=== PATIENT | female | born 1990 | race Hispanic/Latino ===

== ENCOUNTER 2023-05-13 17:54 | Emergency (ER) | payer BC, OTHER ==
[~2023-05-13] VITALS: Ht 160 cm; Wt 68.0 kg
[~2023-05-13 17:54] MED LIST: PREN-154 PO
[2023-05-13 18:10] VITALS: BP 128/84; PULSE 88; RESP 18
[2023-05-13 19:45] LABS: BASOPHILS # (AUTO) 0.03 K/uL (0.00-0.20); BASOPHILS % (AUTO) 0.5 % (0.0-5.0); EOSINOPHILS # (AUTO) 0.04 K/uL (0.00-0.70); EOSINOPHILS % (AUTO) 0.7 % (0.0-8.0); HEMATOCRIT 36.3 % (36-48); IMMATURE GRANULOCYTE ABSOLUTE 0.03 K/uL (0-1); LYMPHOCYTES # (AUTO) 1.7 K/uL (1.0-4.8); LYMPHOCYTES % (AUTO) 28.1 % (21.0-51.0); MEAN CORPUSCULAR HEMOGLOBIN 28.4 pg (27.0-33.0); MEAN CORPUSCULAR HGB CONC 32.8 g/dL (32.0-36.0); MEAN CORPUSCULAR VOLUME 86.6 fL (79-99); MONOCYTES # (AUTO) 0.6 K/uL (0.1-1.0); MONOCYTES % (AUTO) 9.3 % (3.0-13.0); NEUTROPHILS # (AUTO) 3.6 K/uL (1.8-7.7); NEUTROPHILS % (AUTO) 60.9 % (40.0-77.0); PLATELET COUNT (AUTO) 268 K/uL (130-400); RED BLOOD CELL COUNT(AUTO) 4.19 MIL/uL (4.00-5.50); RED CELL DISTRIBUTION WIDTH 12.9 % (11.0-15.5); WHITE BLOOD COUNT (AUTO) 5.9 K/uL (4.8-10.8)
== END 2023-05-13 22:45 | disposition home or self-care (01) ==
LOC: EDH 17:54
DX: N93.9 Abnormal uterine and vaginal bleeding, unspecified (principal); Z88.1 Allergy status to other antibiotic agents; Z88.5 Allergy status to narcotic agent; Z90.49 Acquired absence of other specified parts of digestive tract
CPT/HCPCS: 36415; 76830; 84703; 85025; 86850; 86900; 86901

== ENCOUNTER 2024-07-25 17:51 | Emergency (ER) | payer BC ==
[~2024-07-25] VITALS: Ht 157.5 cm; Wt 68.0 kg
[2024-07-25 18:00] VITALS: BP 125/74; PULSE 91; RESP 20; TEMP 98.2; O2SAT 100
[2024-07-25] MEDS ORDERED: KETO10TA2 PO (18:05)
[2024-07-25] MEDS ORDERED: LEVO-70 PO (18:05)
[2024-07-25] MEDS: ketOROlac 30MG VIAL (30MG/ML) IM ONE (18:07)
--- NOTE | 2024-07-25 18:07 | ERN ---
General Chief Complaint: Allergies Stated Complaint: SINUS INFECTION Time Seen by MD: 17:52 Time Seen by Midlevel: 17:52 Source: patient History of Present Illness Initial Comments Patient is a 33-year-old female with a past medical history of sinusitis presenting to the emergency department with a frontal headache. Patient reports having an extensive history of sinusitis requiring a balloon sinuplasty. Her symptoms started two weeks ago. She was seen by her primary care doctor last week who started her on amoxicillin and was given a steroid injection with temporary relief. However, she states her symptoms have significantly worsened. She denies any fevers but does report purulent discharge from her nose. Allergies: Coded Allergies: azithromycin (Unverified Allergy, Unknown, HIVES, 12/19/18) codeine (Unverified Allergy, Unknown, DIFFICULTY BREATHING, 12/19/18) Home Meds Reported Medications Vits #93/Iron Fum/FA ( Formula Tablet) 1 Each Tablet, 1 EACH PO DAILY, TAB 12/19/18 Past Medical History Past Medical History: No Pertinent History Past Surgical History: None Family History Family History: Negative Social History Social History: Negative, Lives with family ROS Dictation CONSTITUTIONAL: Negative except for HPI HEAD/FACE: Negative except for HPI EENT: Negative except for HPI RESPIRATORY: Negative except for HPI GASTROINTESTINAL/ABDOMINAL: Negative except for HPI GENITOURINARY: Negative except for HPI MUSCULOSKELETAL: Negative except for HPI INTEGUMENTARY: Negative except for HPI NEUROLOGICAL/PSYCH: Negative except for HPI HEMATOLOGIC/LYMPHATIC: Negative except for HPI All Systems Negative, Except as noted above. 13 point review of systems assessed and all negative except for above. Physical Exam Physical Exam Dictation Vital Signs reviewed General Appearance: Alert, oriented x 3, no acute distress, well developed, nourished. Head and Face: Bilateral maxillary sinus tenderness Eyes: PERRL, pink conjunctivas, eyelid no trauma, anterior chamber with arcus se nilis. Ears: Pinnas intact and no signs of trauma or erythema ear canals clear and no discharge TM no erythema Nose: No discharge, no bleeding. Oropharynx: Mouth normal, tongue pink, pharynx clear,no erythema, tonsils no exudates, no abscesses noted, mucous membrane moist Neck: Supple, non-tender, no thyromegaly, no masses, no JVD, no bruits Breast:Deferred Chest:No tenderness, no crepitus, no paradoxical movement, no retractions Lungs:Clear, well-ventilated, symmetric, no rales, no wheezing, no rhonchi, no stridor, good breath sounds bilaterally Heart: Regular rate, regular rhythm, no murmur, no gallops Vascular: no peripheral edema, Abdomen: Soft, positive bowel sounds, nondistended, no guarding, nontender, no rebound, no masses no hepatomegaly, no splenomegaly, no Low's sign, no hernias. Rectal: Deferred Genital: Deferred Neurological: Normal speech, motor function intact, sensory function intact Musculoskeletal: Neck nontender, full range of motion, back nontender, full range of motion, Extremities: nontender, full range of motion Skin: Color pink, dry, no turgor, no rash, no lacerations, no abrasions, no contusions. Lymphatic: Deferred MDM MDM: Patient is a 33-year-old female with a past medical history of sinusitis presenting to the emergency department with a frontal headache. Patient reports having an extensive history of sinusitis requiring a balloon sinuplasty. Her symptoms started two weeks ago. She was seen by her primary care doctor last week who started her on amoxicillin and was given a steroid injection with temporary relief. However, she states her symptoms have significantly worsened. She denies any fevers but does report purulent discharge from her nose. On physical examination patient has bilateral maxillary sinus tenderness. There was no purulent discharge noted. She is afebrile and nontoxic appearing. Patient has been taking amoxicillin for the last couple of days with no improvement. Patient was advised to stop the amoxicillin and start a r espiratory fluoroquinolone. She was also advised to follow up with your primary care doctor for possible referral to ENT. Patient agrees with this plan and all questions have been answered. Patient was given dexamethasone and Toradol in the emergency department. She specifically denies being and states she was on control. Differential diagnosis: Sinusitis, upper respiratory infection, viral syndrome There are no social concerns with this patient. Prescription drug management Prescriptions will include: Levofloxacin Medical management and examination interpretation discussions were had by me with other qualified healthcare professionals as indicated for the patient's care. ED Course Orders Procedure Category Date Status Time Ketorolac PHA 07/25/24 In Process Tromethamine 30mg/Ml 18:00 Dexamethasone 4mg/Ml PHA 07/25/24 In Process 1ml Vial (Dexametha 18:00 Vital Signs Date Time Temp Pulse Resp B/P (MAP) Pulse Ox O2 Delivery O2 Flow Rate FiO2 07/25/24 17:51 98.2 96 20 143/108 99 0 DX & DISP Disposition: Discharge Departure Impression: Primary Impression: Sinusitis Condition: Stable Scripts Levofloxacin (Levofloxacin) 500 Mg Tablet 1 TAB PO DAILY for 10 Days, #10 TAB 0 Refills Prov: ARVIND DEY 07/25/24 Ketorolac Tromethamine (Ketorolac Tromethamine) 10 Mg Tablet 10 MG PO BID for 5 Days, #10 TAB Prov: ARVIND DEY 07/25/24 Additional Instructions: Your physical examination is consistent with sinusitis. You were given an injection of Toradol and dexamethasone in the emergency department. Given that you were on amoxicillin with no relief. Please stop the amoxicillin and start the new medication I am going to prescribe called levofloxacin. Follow up with your primary care doctor for possible referral to ENT. If you develop any worsening symptoms please report to the ER for further evaluation. Referrals: BENNY JENKINS (PCP) Time of Disposition: 18:04 I have reviewed the case, and I agree with, Diagnosis and Plan I performed the substantive portion of the visit. I have reviewed and personally made and approve the management plan that is documented in the note by myself or the NADINE. I acknowledge for responsibility for the patient's management plan. ARVIND DEY Jul 25, 2024 18:07
[2024-07-25] MEDS: dexaMETHasone SOD PHOSPHATE 4 MG/ML 1ML VIAL IV ONE (18:08)
== END 2024-07-25 18:38 | disposition home or self-care (01) ==
LOC: EDH 17:51
DX: J32.9 Chronic sinusitis, unspecified (principal); Z88.1 Allergy status to other antibiotic agents; Z88.5 Allergy status to narcotic agent
CPT/HCPCS: 99284; 96374; 96372; J1100; J1885

== ENCOUNTER 2025-01-20 19:10 | Emergency (ER) | payer BC ==
[~2025-01-20] VITALS: Ht 160 cm; Wt 65.8 kg
[~2025-01-20 19:10] MED LIST changes: +KETO10TA2 PO; +LEVO-70 PO
--- NOTE | 2025-01-20 19:14 | NUR ---
COVID, FLU AND STREP SWABS COLLECTED AND SENT
[2025-01-20 19:38] LABS: RAPID GROUP A STREP negative (NEGATIVE)
[2025-01-20 19:39] LABS: SARS-CoV-2, RNA, NAAT NEGATIVE SARS CoV-2 (NEGATIVE)
[2025-01-20] MEDS: 0.9%NACL 1000ML 1,000 ML IV STA (20:01)
[2025-01-20] MEDS: BENZONATATE 100 MG CAPSULE PO STA (20:02)
[2025-01-20] MEDS: Solu-medROL 125MG VIAL IVP STA (20:02)
[2025-01-20] MEDS: ketOROlac 15MG/ML VIAL (15MG/ML) IV STA (20:02)
[2025-01-20 20:09] LABS: BASOPHILS # (AUTO) 0.02 K/uL (0.00-0.20); BASOPHILS % (AUTO) 0.3 % (0.0-5.0); EOSINOPHILS # (AUTO) 0.03 K/uL (0.00-0.70); EOSINOPHILS % (AUTO) 0.4 % (0.0-8.0); HEMATOCRIT 41.1 % (36-48); IMMATURE GRANULOCYTE ABSOLUTE 0.02 K/uL (0-1); LYMPHOCYTES # (AUTO) 1.3 K/uL (1.0-4.8); LYMPHOCYTES % (AUTO) 17.3 % (21.0-51.0); MEAN CORPUSCULAR HEMOGLOBIN 29.1 pg (27.0-33.0); MEAN CORPUSCULAR HGB CONC 33.3 g/dL (32.0-36.0); MEAN CORPUSCULAR VOLUME 87.3 fL (79-99); MONOCYTES # (AUTO) 0.6 K/uL (0.1-1.0); MONOCYTES % (AUTO) 8.2 % (3.0-13.0); NEUTROPHILS # (AUTO) 5.3 K/uL (1.8-7.7); NEUTROPHILS % (AUTO) 73.5 % (40.0-77.0); PLATELET COUNT (AUTO) 253 K/uL (130-400); RED BLOOD CELL COUNT(AUTO) 4.71 MIL/uL (4.00-5.50); RED CELL DISTRIBUTION WIDTH 13.2 % (11.0-15.5); WHITE BLOOD COUNT (AUTO) 7.2 K/uL (4.8-10.8)
--- NOTE | 2025-01-20 20:14 | HMCIMG ---
Exam Type: CHEST 1VW Clinical Information: COUGH Comparison: None Findings: The lungs are clear of infiltrates. The heart is normal in size. The bony and soft tissue structures of the chest are unremarkable. Impression: Clear lungs.
[2025-01-20 20:17] VITALS: PULSE 120; RESP 20
[2025-01-20] MEDS: IpraTROPium/alBUTERol SULFATE 3 ML SOLUTION IH STA (20:17)
[2025-01-20 20:22] LABS: CREATININE 0.9 mg/dL (0.5-1.0)
[2025-01-20 20:38] LABS: INFLUENZA TYPE A NEGATIVE FOR TYPE A (NEG)
[2025-01-20 20:39] LABS: INFLUENZA TYPE B NEGATIVE FOR TYPE B (NEG)
[2025-01-20] MEDS ORDERED: ONDA-243 PO (21:31)
--- NOTE | 2025-01-20 21:32 | ERN ---
ED Note History of Present Illness Stated Complaint: HEADACHE, FEVERS, BODYACHES Chief Complaint: Flu Symptoms Time Seen by MD: 19:15 Time Seen by Midlevel: 19:20 Dictation: 34-YEAR-OLD FEMALE WITH NO MEDICAL HISTORY COMING IN WITH COMPLAINTS OF FLU-LIKE SYMPTOMS ONSET WEDNESDAY. PATIENT STATES HER SON WAS DIAGNOSED WITH A AMMONIA TWO WEEKS AGO. PATIENT STATES SHE WAS SEEN BY HER PCP ON WEDNESDAY WAS GIVEN IN ROCEPHIN IM, A STEROID, AND WAS PLACED ON LEVOFLOXACIN IN AND AN INHALER. PATIENT STATES TODAY SHE STILL CONTINUES WITH THROAT PAIN AND FEELS WEAK. NO MENINGEAL SIGNS. Allergies: Coded Allergies: azithromycin (Unverified Allergy, Unknown, HIVES, 12/19/18) codeine (Unverified Allergy, Unknown, DIFFICULTY BREATHING, 12/19/18) Home Meds Active Scripts Levofloxacin (Levofloxacin) 500 Mg Tablet, 1 TAB PO DAILY for 10 Days, #10 TAB 0 Refills Prov:ARVIND DEY 07/25/24 Ketorolac Tromethamine (Ketorolac Tromethamine) 10 Mg Tablet, 10 MG PO BID for 5 Days, #10 TAB Prov:ARVIND DEY 07/25/24 Reported Medications Vits #93/Iron Fum/FA ( Formula Tablet) 1 Each Tablet, 1 EACH PO DAILY, TAB 12/19/18 Past Medical History Past Medical History: No Pertinent History Surgical History: None Family History: Negative Social History: Negative, Lives with family LMP: Jan 09, 2025 Review of System Dictation CONSTITUTIONAL: POSITIVE FOR FEVER CHILLS AND GENERALIZED BODY ACHES AND PAINS EYES: NEGATIVE FOR INJURY, PAIN,REDNESS, AND DISCHARGE ENT: NEGATIVE FOR INJURY,PAIN OR SWELLING CARDIOVASCULAR: NEGATIVE FOR CHEST PAIN, PALPITATIONS, AND EDEMA RESPIRATORY: NEGATIVE FOR SHORTNESS OF BREATH, COUGH, AND WHEEZING, ABDOMEN/GI: NEGATIVE FOR ABDOMINAL PAIN, NAUSEA, VOMITING, DIARRHEA, AND CONSTIPATION BACK: NEGATIVE FOR INJURY AND PAIN : NEGATIVE FOR INJURY, BLEEDING AND DISCHARGE MS/EXTREMITY: NEGATIVE FOR INJURY AND DEFORMITY SKIN: NEGATIVE FOR RASH, AND DISCOLORATION NEURO: NEGATIVE FOR HEADACHE, WEAKNESS, NUMBNESS, TINGLING, AND SEIZURE PSYCH: NEGATIVE FOR SUICIDE IDEATION, HOMICIDAL IDEATION, AND HALLUCINATIONS Review of Systems: was completed Initial Vital Sign VS Vital Signs Date Time Temp Pulse Resp B/P (MAP) Pulse Ox O2 Delivery O2 Flow Rate FiO2 5/10/25 19:11 100.6 127 20 156/97 98 Room Air Physical Exam Dictation GENERAL: AWAKE, ALERT, NAD HEAD/FACE: NORMOCEPHALIC, ATRAUMATIC EYES: PERRL, EOMI, VISION AT BASELINE ENT: ORAL CAVITY CLEAR, TMS CLEAR, MILD ERYTHEMA NOTED TO THE PHARYNX, NO SWELLING, NO EXUDATE, NO EFFACEMENT NECK: TRACHEA MIDLINE, SUPPLE, NO NUCHAL RIGIDITY CARDIOVASCULAR: RRR, NORMAL S1/S2, NO MRGS, NO JVD RESPIRATORY: CTAB, NO RESPIRATORY DISTRESS, NO RALES OR WHEEZES ABDOMEN: SOFT, NON-TENDER, NON-DISTENDED, NORMAL BOWEL SOUNDS, NO GUARDING OR REBOUND. SKIN: WARM, DRY, NORMAL TURGOR, NO RASH MS/EXTREMITY: PULSES EQUAL, NO CYANOSIS, NEUROVASCULAR INTACT, FROM NEURO: COAX4, GCS 15, STRENGTH 5/5, CN 2-12 INTACT, NORMAL CEREBELLAR EXAM, NORMAL GAIT, PSYCH: NORMAL BEHAVIOR, MOOD, AND AFFECT NORMAL Results (Laboratory/Radiology) Laboratory/Radiology Laboratory Tests Test 01/20/25 19:17 01/20/25 19:54 Influenza Type A Antigen NEGATIVE FOR TYPE A (NEG) Influenza Type B Antigen NEGATIVE FOR TYPE B (NEG) SARS-CoV-2, RNA, NAAT NEGATIVE SARS CoV-2 Group A Streptococcus Rapid negative (NEGATIVE) White Blood Count 7.2 K/uL (4.8-10.8) Red Blood Count 4.71 MIL/uL (4.00-5.50) Hemoglobin 13.7 g/dL (12.0-16.0) Hematocrit 41.1 % (36-48) Mean Corpuscular Volume 87.3 fL (79-99) Mean Corpuscular Hemoglobin 29.1 pg (27.0-33.0) Mean Corpuscular Hemoglobin Concent 33.3 g/dL (32.0-36.0) Red Cell Distribution Width 13.2 % (11.0-15.5) Platelet Count 253 K/uL (130-400) Mean Platelet Volume 9.3 fL (7.5-10.5) Immature Granulocyte % (Auto) 0.3 % (0-1) Neutrophils (%) (Auto) 73.5 % (40.0-77.0) Lymphocytes (%) (Auto) 17.3 % (21.0-51.0) L Monocytes (%) (Auto) 8.2 % (3.0-13.0) Eosinophils (%) (Auto) 0.4 % (0.0-8.0) Basophils (%) (Auto) 0.3 % (0.0-5.0) Neutrophils # (Auto) 5.3 K/uL (1.8-7.7) Lymphocytes # (Auto) 1.3 K/uL (1.0-4.8) Monocytes # (Auto) 0.6 K/uL (0.1-1.0) Eosinophils # (Auto) 0.03 K/uL (0.00-0.70) Basophils # (Auto) 0.02 K/uL (0.00-0.20) Absolute Immature Granulocyte (auto 0.02 K/uL (0-1) Nucleated Red Blood Cells 0.0 % (0.0-0.19) Sodium Level 140 mmol/L (136-145) Potassium Level 4.0 mmol/L (3.5-5.1) Chloride Level 103 mmol/L (101-111) Carbon Dioxide Level 32 mmol/L (21-32) Blood Urea Nitrogen 6 mg/dL (7-18) L Creatinine 0.9 mg/dL (0.5-1.0) Glomerular Filtration Rate Calc 85 mL/min (>90) Random Glucose 127 mg/dL (70-105) H Total Calcium 9.0 mg/dL (8.5-10.1) Human Chorionic Gonadotropin, Quant 0 mIU/mL (0-5) Labs Reviewed?: Yes X-RAY Comment: [place] [address] IMAGING REPORT Signed PATIENT: JOSE L QUINN MR#: [id number] : 1990 SEX: F AGE: 34 LOCATION: [facility] ORDER 22 STATUS: REG ER REPORT#: [id number] SERVICE 20 REASON: COUGH ORDERING PHYSICIAN: TARA MEEHAN NP PROCEDURE: CXR1VW - CHEST 1VW Exam Type: CHEST 1VW Clinical Information: COUGH Comparison: None Findings: The lungs are clear of infiltrates. The heart is normal in size. The bony and soft tissue structures of the chest are unremarkable. Impression: Clear lungs. DICTATED BY: DELMER GOMEZ MD DATE: 01/20/252010 ELECTRONICALLY SIGNED BY: DELMER GOMEZ MD DATE: 01/20/252013 ED Course ED Course Orders Procedure Category Date Status Time Covid Rna Naat LAB 01/20/25 Complete 19:14 Rapid (Group A Strep) LAB 01/20/25 Complete 19:14 Cbc With Differential LAB 01/20/25 Complete 19:21 Basic Metabolic Panel LAB 01/20/25 Complete 19:21 Hcg,Quantitative LAB 01/20/25 Complete 19:21 Chest 1vw RAD 01/20/25 Resulted 19:21 0.9%Nacl 1000ml (Ns PHA 01/20/25 In Process 1000ml) 19:21 Methylprednisolone PHA 01/20/25 Complete Succ 125mg (Solu-Medr 19:21 Ketorolac PHA 01/20/25 Complete Tromethamine 15mg/Ml 19:21 Benzonatate 100 Mg PHA 01/20/25 Complete Capsule (Tessalon 100 19:21 Ipratropium/Albuterol PHA 01/20/25 Complete Neb (Duoneb) 19:21 Current Medications Medications (Trade) Dose Ordered Sig/Beroniac Route PRN Reason Start Time Stop Time Status Last Admin Dose Admin Albuterol (DUOneb) 1 UDVIAL ONCE STAT IH 01/20/25 19:21 01/20/25 19:25 DC 01/20/25 20:17 Benzonatate (Tessalon 100mg Caps) 200 mg ONCE STAT PO 01/20/25 19:21 01/20/25 19:25 DC 01/20/25 20:02 Ketorolac Tromethamine (toRADol) 15 mg ONCE STAT IV 01/20/25 19:21 01/20/25 19:25 DC 01/20/25 20:02 Methylprednisolone Sodium Succinate (Solu-medROL 125MG) 125 mg ONCE STAT IVP 01/20/25 19:21 01/20/25 19:25 DC 01/20/25 20:02 Sodium Chloride 1,000 ml @ 100 mls/hr Q10H STAT IV 01/20/25 19:21 01/21/25 05:20 5/10/25 20:01 Vital Signs Date Time Temp Pulse Resp B/P (MAP) Pulse Ox O2 Delivery O2 Flow Rate FiO2 01/20/25 20:17 120 20 01/20/25 19:11 100.6 127 20 156/97 98 Room Air Medical Decision Making MDM MDM: 34-YEAR-OLD FEMALE WITH NO MEDICAL HISTORY COMING IN WITH COMPLAINTS OF FLU-LIKE SYMPTOMS ONSET WEDNESDAY. PATIENT STATES HER SON WAS DIAGNOSED WITH A AMM ONIA TWO WEEKS AGO. PATIENT STATES SHE WAS SEEN BY HER PCP ON WEDNESDAY WAS GIVEN IN ROCEPHIN IM, A STEROID, AND WAS PLACED ON LEVOFLOXACIN IN AND AN INHALER. PATIENT STATES TODAY SHE STILL CONTINUES WITH THROAT PAIN AND FEELS WEAK. NO MENINGEAL SIGNS. REASSESSMENT AFTER FLUIDS PATIENT STATES SHE FEELS BETTER. BLOOD WORK UNREMARKABLE. CHEST X-RAY IS CLEAR. SWABS ARE NEGATIVE FOR COVID, FLU OR STREP. DISCUSSED WITH THE PATIENT SHE WAS THE CORRECT TREATMENT AND NEEDS TO GIVE IT TIME FOR THE ANTIBIOTICS TAKE EFFECT. EDUCATED TO FOLLOW UP WITH HER PCP IF IN COUPLE OF DAYS AFTER TAKING ANTIBIOTIC SHE DOES NOT FEEL ANY BETTER. DISCUSSED IF SHE HAS A ANY SICK WORSENING SYMPTOMS TO RETURN BACK TO THE EMERGENCY ROOM. PATIENT VERBALIZED UNDERSTANDING, ANSWERED ALL QUESTIONS. DIFFERENTIAL DIAGNOSIS: URI, INFLUENZA, COVID, VIRAL SYNDROME RATIONALE: TESTS CONSIDERED AND ORDERED SECONDARY TO SHARED DECISION MAKING INCLUDE: PREVIOUS OUTSIDE RECORDS REVIEWED: OLD ER VISITS. RISK OF COMPLICATION AND/OR MORBIDITY OR MORTALITY OF PATIENT MANAGEMENT: NONE MEDICATIONS-PER MEDICATION RECONCILIATION NEED FOR HOSPITALIZATION: PATIENT DOES NOT MEET CRITERIA FOR HOSPITALIZATION. NEED FOR EMERGENCY MAJOR/MINOR SURGERY: NO THERE ARE NO SOCIAL CONCERNS WITH THIS PATIENT. PRESCRIPTION DRUG MANAGEMENT PRESCRIPTIONS WILL INCLUDE SYMPTOMATIC CARE PATIENT'S PRIOR EXTERNAL MEDICAL RECORDS FROM OTHER ER VISITS WERE REVIEWED BY ME INDICATED. PRIOR TESTING AND RESULTS FROM PREVIOUS VISITS WERE REVIEWED. PRIOR TESTS WERE TAKEN INTO ACCOUNT WITH MEDICAL DECISION MAKING AND RESOURCE UTILIZATION, INDEPENDENT HISTORIAN/HISTORIANS WERE USED TO OBTAIN COMPLETE MEDICAL HISTORY. I INDEPENDENTLY INTERPRETED THE TEST THAT WERE PERFORMED, RESULTS WERE REVIEWED BY ME AND CONSIDERED FINDINGS ON RADIOLOGY IF ORDERED. MEDICAL MANAGEMENT AND EXAMINATION INTERPRETATION DISCUSSIONS WERE HAD BY ME WITH OTHER QUALIFIED HEALTHCARE PROFESSIONALS INDICATED FOR THE PATIENT'S CARE. DX & DISP Disposition: Discharge Departure Impression: Primary Impression: URI (upper respiratory infection) Condition: Stable Scripts Ondansetron (Ondansetron Odt) 4 Mg Tab.rapdis 4 MG PO Q6HPRN PRN for nausea for 3 Days, #12 TAB 0 Refills Prov: TARA MEEHAN NP 01/20/25 Additional Instructions: CONTINUE TAKING THE ANTIBIOTIC THAT YOU WERE PRESCRIBED ALONG WITH THE OTHER MEDICATIONS. FOLLOW UP WITH YOUR PRIMARY DOCTOR IN 1-2 DAYS, RETURN TO THE HOSPITAL IF YOU HAVE ANY WORSENING SYMPTOMS. STAY HYDRATED Referrals: BENNY JENKINS (PCP) Time of Disposition: 21:31 I have reviewed the case, and I agree with, Diagnosis and Plan TARA MEEHAN NP January 20, 2025 21:32
[2025-01-20 22:55] VITALS: BP 115/63; PULSE 84; RESP 16; TEMP 98.3; O2SAT 100
== END 2025-01-20 22:57 | disposition home or self-care (01) ==
LOC: EDH 19:10
DX: J06.9 Acute upper respiratory infection, unspecified (principal); R10.2 Pelvic and perineal pain; Z20.822 Contact with and (suspected) exposure to COVID-19; Z79.899 Other long term (current) drug therapy; Z88.1 Allergy status to other antibiotic agents; Z88.5 Allergy status to narcotic agent
CPT/HCPCS: 99284; 96374; 71045; 87635; 96375; 80048; 84702; 85025; 87880; 87804 ×2; 36415; 94640; J1885; J2919; J7030

== ENCOUNTER 2025-04-08 21:02 | Emergency (ER) | payer BC ==
[~2025-04-08] VITALS: Ht 160 cm; Wt 59.0 kg
[~2025-04-08 21:02] MED LIST changes: +ONDA-243 PO
--- NOTE | 2025-04-08 21:05 | NUR ---
FLU, COVID AND STREP SWABS COLLECTED ANND SENT FOR ANY FUTURE ORDERS
[2025-04-08 21:24] LABS: RAPID GROUP A STREP negative (NEGATIVE)
--- NOTE | 2025-04-08 21:42 | ERN ---
General Chief Complaint: Flu Symptoms Stated Complaint: FEVER, SORE THROAT, BODYACHES. SINUS PRESSURE Time Seen by MD: 21:05 Source: patient History of Present Illness Initial Comments Patient has a healthy 34-year-old female who for the last 2-3 days has had sore throat body aches sinus pressure and low-grade temperatures. She feels there is purulent drainage in the back of her throat and she has a productive cough. She has a history of sinus infections from a deviated septum and she feels like she has similar symptoms now. She comes in because her primary care physician has switched health care plans. She notes that there are people with coughing and sniffling in her family. Allergies: Coded Allergies: azithromycin (Unverified Allergy, Unknown, HIVES, 12/19/18) codeine (Unverified Allergy, Unknown, DIFFICULTY BREATHING, 12/19/18) Home Meds Active Scripts Ondansetron (Ondansetron Odt) 4 Mg Tab.rapdis, 4 MG PO Q6HPRN PRN for nausea for 3 Days, #12 TAB 0 Refills Prov:TARA MEEHAN PATIENT SERVICE SPECIALIST 01/20/25 Levofloxacin (Levofloxacin) 500 Mg Tablet, 1 TAB PO DAILY for 10 Days, #10 TAB 0 Refills Prov:ARVIND DEY PA 07/25/24 Ketorolac Tromethamine (Ketorolac Tromethamine) 10 Mg Tablet, 10 MG PO BID for 5 Days, #10 TAB Prov:ARVIND DEY PA 07/25/24 Reported Medications Vits #93/Iron Fum/FA ( Formula Tablet) 1 Each Tablet, 1 EACH PO DAILY, TAB 12/19/18 Past Medical History Past Medical History: No Pertinent History Past Surgical History: Other Surgical History Other: NASAL-deviated septum Family History Family History: Negative Social History Social History: Negative, Lives with family Female( History) LMP: Apr 02, 2025 Constitutional: (+) fever EENTM: (-) eye pain, (-) blurred vision, (-) tearing, (-) double vision, (-) ear pain, (-) ear discharge, (-) nose pain, (-) nose congestion, (-) throat pain, (-) Throat swelling, (-) mouth pain, (-) tooth pain, (-) mouth swelling, (-) other documentation Respiratory: (+) cough, (+) wheezing Cardiovascular: (+) dyspnea on exertion Gastrointestinal/Abdominal: (-) nausea, (-) vomiting, (-) diarrhea, (-) abdominal pain, (-) abdominal distention, (-) constipation, (-) rectal bleeding, (-) dark stool/melena, (-) other documentation Genitourinary: (-) vaginal discharge, (-) vaginal bleeding, (-) dysuria, (-) frequency, (-) hematuria, (-) pain, (-) other documentation Musculoskeletal: (-) Neck pain, (-) back pain, (-) Flank Pain, (-) joint pain, (-) joint swelling, (-) muscle pain, (-) muscle stiffness, (-) gout, (-) other documentation Skin: (-) laceration, (-) contusion, (-) abrasion, (-) abscess, (-) rash, (-) change in color, (-) change in hair, (-) change in nails, (-) diaphoresis, (-) dryness, (-) other documentation Physical Exam General Appearance: (+) mild distress Orientation: (+) alert, (+) oriented x 3 Head/Face Trauma: No Eye: bilateral eye normal inspection, bilateral eye PERRL, bilateral eye EOMI Ear, Nose, Throat: (+) hearing grossly normal, (+) normal ENT inspection, (+) moist mucous membraine, (+) normal pharynx Ear, Nose, Throat Comment I could not see any sinus drainage or erythema in the back of her throat. Neck: (-) normal inspection, (-) supple, (-) full range of motion, (-) no JVD, (-) non-tender, (-) no bruit, (-) tender, (-) limited range of motion, (-) tender lateral, (-) tender midline, (-) thyromegaly, (-) lymphadenopathy, (-) masses, (-) carotid bruit, (-) other documentaion Respiratory: (+) chest non-tender, (+) lungs clear, (+) well ventilated Heart: (+) regular, (+) no gallop Gastrointestinal: (+) soft, (+) non-tender, (+) bowel sound present Results Laboratory and Microbiology Lab and Micro Result Laboratory Tests Test 04/08/25 21:07 04/08/25 21:50 04/08/25 21:55 Influenza Type A Antigen Positive For Type A Influenza Type B Antigen Positive For Type B SARS-CoV-2 Antigen (Rapid) POSITIVE FOR SARS AG Group A Streptococcus Rapid negative (NEGATIVE) Urine Color LIGHT-YELLOW (YELLOW) Urine Appearance CLEAR (CLEAR) Urine pH 6.5 (5.0-8.0) Urine Specific [place] 1.021 (1.001-1.031) Urine Protein NEGATIVE mg/dL (NEGATIVE) Urine Glucose (UA) NEGATIVE mg/dL (NEGATIVE) Urine Ketones NEGATIVE mg/dL (NEGATIVE) Urine Occult Blood NEGATIVE (NEGATIVE) Urine Nitrate NEGATIVE (NEGATIVE) Urine Bilirubin NEGATIVE mg/dL (NEGATIVE) Urine Urobilinogen 0.2 mg/dL (0.2-1.0) Urine Leukocyte Esterase NEGATIVE [place]/uL Urine HCG, Qualitative NEGATIVE (NEGATIVE) White Blood Count 3.5 K/uL (4.8-10.8) L Red Blood Count 4.13 MIL/uL (4.00-5.50) Hemoglobin 12.1 g/dL (12.0-16.0) Hematocrit 36.5 % (36-48) Mean Corpuscular Volume 88.4 fL (79-99) Mean Corpuscular Hemoglobin 29.3 pg (27.0-33.0) Mean Corpuscular Hemoglobin Concent 33.2 g/dL (32.0-36.0) Red Cell Distribution Width 13.9 % (11.0-15.5) Platelet Count 225 K/uL (130-400) Mean Platelet Volume 9.5 fL (7.5-10.5) Immature Granulocyte % (Auto) 0.3 % (0-1) Neutrophils (%) (Auto) 53.0 % (40.0-77.0) Lymphocytes (%) (Auto) 35.9 % (21.0-51.0) Monocytes (%) (Auto) 8.8 % (3.0-13.0) Eosinophils (%) (Auto) 1.7 % (0.0-8.0) Basophils (%) (Auto) 0.3 % (0.0-5.0) Neutrophils # (Auto) 1.9 K/uL (1.8-7.7) Lymphocytes # (Auto) 1.3 K/uL (1.0-4.8) Monocytes # (Auto) 0.3 K/uL (0.1-1.0) Eosinophils # (Auto) 0.06 K/uL (0.00-0.70) Basophils # (Auto) 0.01 K/uL (0.00-0.20) Absolute Immature Granulocyte (auto 0.01 K/uL (0-1) Nucleated Red Blood Cells 0.0 % (0.0-0.19) Sodium Level 138 mmol/L (136-145) Potassium Level 3.6 mmol/L (3.5-5.1) Chloride Level 104 mmol/L (101-111) Carbon Dioxide Level 29 mmol/L (21-32) Blood Urea Nitrogen 4 mg/dL (7-18) L Creatinine 0.6 mg/dL (0.5-1.0) Glomerular Filtration Rate Calc 119 mL/min (>90) Random Glucose 131 mg/dL (70-105) H Total Calcium 8.1 mg/dL (8.5-10.1) L MDM MDM: Differential diagnosis: Nasal pharyngitis sinus infection otitis media COVID influenza strep bronchitis pneumonia Rationale: Tests considered and ordered secondary to shared decision making include: Previous outside records reviewed: Old ER visits. Risk of complication and/or morbidity or mortality of patient management: None Medications-Per medication reconciliation Need for hospitalization: Patient does meet criteria for hospitalization. Need for emergency major/minor surgery: No There are no social concerns with this patient. Prescription drug management Prescriptions will include symptomatic care Patient's prior external medical records from other ER visits were reviewed by me as indicated. Prior testing and results from previous visits were reviewed. Prior tests were taken into account with medical decision making and resource utilization, independent historian/historians were used to obtain complete medical history. I independently interpreted the test that were performed, results were reviewed by me and considered findings on radiology if ordered. Patient's CBC is normal except for a low WBC count chemistry panel is also normal. UA negative for infection and . Throat swabs positive for flu a and flu B and COVID negative for strep. I have canceled the chest x-ray as the patient's white cell count is normal and she is relatively asymptomatic. I will discharge her with prescriptions for Paxlovid and Tamiflu. ED Course Orders Procedure Category Date Status Time Covid19 (Sars Antigen LAB 04/08/25 Complete Rapid) 21:08 Influenza Type A & B, LAB 04/08/25 Complete Rapid 21:08 Rapid (Group A Strep) LAB 04/08/25 Complete 21:08 Lactated Ringers PHA 04/08/25 Complete 1000ml (Lactated 21:34 Cbc With Differential LAB 04/08/25 Complete 21:34 ,Urine Test LAB 04/08/25 Complete 21:34 Procalcitonin LAB 04/08/25 In Process 21:34 Basic Metabolic Panel LAB 04/08/25 Complete 21:34 Urinalysis Profile LAB 04/08/25 Complete 21:40 Pseudoephedrine Hcl PHA 04/08/25 Complete (Sudafed) 22:00 Chest 1vw RAD 04/08/25 Logged 21:40 Loratadine/Pseudophephedrine PHA 04/08/25 In Process (Claritin-D 22:30 Current Medications Medications (Trade) Dose Ordered Sig/[place] Route PRN Reason Start Time Stop Time Status Last Admin Dose Admin Lactated Ringer's (Lactated Ringers 1000ml) 1,000 ml BOLUS STAT IV 04/08/25 21:34 04/08/25 21:59 DC 04/08/25 22:04 Loratadine/ Pseudoephedrine Sulfate (CLARitin-D 12 HOUR TABLET) 1 each ONCE ONCE PO 04/08/25 22:30 04/08/25 22:31 Pseudoephedrine HCl (SudaFED) 30 mg ONCE ONCE PO 04/08/25 22:00 04/08/25 22:01 DC Vital Signs Date Time Temp Pulse Resp B/P (MAP) Pulse Ox O2 Delivery O2 Flow Rate FiO2 04/08/25 21:04 99.9 104 20 132/84 100 Room Air DX & DISP Disposition: Discharge Departure Impression: Primary Impression: URI (upper respiratory infection) Additional Impressions: COVID-19, Influenza A (H1N1), Influenza B Condition: Stable Scripts Oseltamivir Phosphate (Tamiflu) 75 Mg Cap 1 CAP PO BID for 5 Days, #10 CAP 0 Refills Prov: SHANEL SABILLON MD 04/08/25 Nirmatrelvir/Ritonavir (Paxlovid 300-100 mg Dose Pack) 300 Mg (150 Mg X 2)-100 Mg Tab.ds.pk 1 EACH PO BID for 5 Days, #10 TAB Prov: SHANEL SABILLON MD 04/08/25 Additional Instructions: You have both influenza a and influenza B and COVID. I have written prescriptions for Tamiflu and Paxlovid. Please take them to help resolve your symptoms quickly. Currently you have no evidence of bacterial pneumonia. Please return to the emergency room if her symptoms do not get better quickly or if they get worse with increasing sputum production and shortness of breath. F or your sinus pain I would recommend Sudafed or Claritin D. Referrals: BENNY JENKINS (PCP) SHANEL SABILLON MD Apr 08, 2025 21:42
[2025-04-08 21:53] LABS: COVID19 (SARS ANTIGEN RAPID) POSITIVE FOR SARS AG (NEGATIVE); INFLUENZA TYPE A Positive For Type A (NEGATIVE); INFLUENZA TYPE B Positive For Type B (NEGATIVE)
[2025-04-08] MEDS: LACTATED RINGERS 1000ML IV STA (22:04)
[2025-04-08 22:16] LABS: IMMATURE GRANULOCYTE ABSOLUTE 0.01 K/uL (0-1); NUCLEATED RED BLOOD CELLS 0.0 % (0.0-0.19); PLATELET COUNT (AUTO) 225 K/uL (130-400); RED BLOOD CELL COUNT(AUTO) 4.13 MIL/uL (4.00-5.50); RED CELL DISTRIBUTION WIDTH 13.9 % (11.0-15.5); WHITE BLOOD COUNT (AUTO) 3.5 K/uL (4.8-10.8)
[2025-04-08 22:24] LABS: APPEARANCE,URINE CLEAR (CLEAR); GLUCOSE, URINE (UA) NEGATIVE (NEGATIVE); LEUKOCYTE ESTERASE ,URINE NEGATIVE Leu/uL (NEGATIVE); NITRATE,URINE NEGATIVE (NEGATIVE); OCCULT BLOOD,URINE NEGATIVE (NEGATIVE)
[2025-04-08 22:25] LABS: CREATININE 0.6 mg/dL (0.5-1.0); GLOMERULAR FILTR. RATE CALC 119.0 mL/min (>90); GLUCOSE,RANDOM 131.0 mg/dL (70-105); SODIUM SERUM 138.0 mmol/L (136-145); UREA NITROGEN, BLOOD 4.0 mg/dL (7-18)
[2025-04-08 22:25] LABS: ADD UA MICROSCOPIC NO
[2025-04-08] MEDS: LORATAdine/pseudophEPHEDrine 5/120 MG 1 EACH TAB.SR.12H PO ONE (22:36)
[2025-04-08] MEDS ORDERED: NIRM1TAB9 PO (22:37)
[2025-04-08] MEDS ORDERED: OSEL75 PO (22:37)
--- NOTE | 2025-04-08 22:47 | NUR ---
pr pend completion of fluids prior to dc
[2025-04-08 22:49] VITALS: BP 130/80; PULSE 90; RESP 16; TEMP 99; O2SAT 98
--- NOTE | 2025-04-09 00:06 | HMCIMG ---
EXAM: CR Chest, 1 view CLINICAL HISTORY: Cough. COMPARISON: Chest radiograph dated 01/20/2025. FINDINGS: The lungs show no infiltrates or other acute findings. No pleural effusion or pneumothorax. The cardiomediastinal silhouette is within normal limits. No acute osseous abnormality. IMPRESSION: No acute cardiopulmonary process is evident. No interval changes. /[place]
== END 2025-04-08 23:14 | disposition home or self-care (01) ==
LOC: EDH 21:02
DX: U07.1 COVID-19 (principal); J06.9 Acute upper respiratory infection, unspecified; Z88.1 Allergy status to other antibiotic agents; Z88.5 Allergy status to narcotic agent
CPT/HCPCS: 99283; 96360; 71045; 87426; 80048; 85025; 87880; 87804 ×2; 81003; 81025; 36415; 84145; J7120; 99284